=== PATIENT | male | born 1985 | race Caucasian/White ===

== ENCOUNTER 2019-03-21 17:59 | Emergency (ER) | payer BC ==
--- NOTE | 2019-03-21 18:07 | ER Report ---
History and Physical Time Seen By MD: 18:03 Hx. 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 Patient's last episode was 10 AM this morning. He had one last night at midnight the day before he had 1 in the day before that. Patient describes onset of blurry vision in the right eye transversing across both eyes. He subsequently develops a left-sided headache, which then spreads across his entire frontal region. He has repetitive vomiting about every 30 minutes. Patient denies family history of migraines. Patient usually takes ibuprofen or Tylenol and retires to sleep. He wakes up with a headache resolved. REVIEW OF SYSTEMS: Respiratory: No cough, no dyspnea. Cardiovascular: No chest pain, no palpitations. Gastrointestinal: As above Musculoskeletal: No back pain. Allergies: Coded Allergies: No Known Drug Allergies (Unverified , 03/21/19) Home Meds Active Scripts Rizatriptan Benzoate (RIZATRIPTAN) 5 Mg Tablet, 1-2 TAB PO Q2H PRN for migrane headache, #12 1 Refill 1-2 tablets at the onset of a migraine, may repeat in 2 hours, do not exceed a max of 30 mg in 24 hours Prov:LORELEI PENA DO 03/21/19 Ondansetron 4 Mg Odt (ONDANSETRON 4 MG ODT) 4 Mg Tab.rapdis, 4 MG PO Q6H PRN for NAUSEA/VOMITING, #15 TAB Prov:LORELEI PENA DO 03/21/19 Reviewed Nurses Notes: Yes Old Medical Records Reviewed: Yes Constitutional Vital Sign - Last 24 Hours 03/21/19 03/21/19 03/21/19 03/21/19 17:59 18:03 18:29 18:30 Temp 98.2 Pulse ??? 97 78 Resp 18 B/P (MAP) 140/98 (112) 140/98 121/92 (102) Pulse Ox 97 91 O2 Delivery Room Air 03/21/19 03/21/19 18:59 19:00 Pulse 85 B/P (MAP) 104/77 (86) Pulse Ox 92 Physical Exam Vital signs stable, afebrile, pulse ox normal General Appearance: The patient is alert, has no immediate need for airway protection and no current signs of toxicity. Mild distress HEENT: Pupils equal and round no injection. PERRLA,+ photophobia, TMs normal, TMJs nontender, oropharynx without redness or exudate Respiratory: Chest is non tender, lungs are clear to auscultation. Cardiac: regular rate and rhythm Gastrointestinal: Abdomen is soft and non tender, no masses, bowel sounds normal. Musculoskeletal: Neck: Neck is supple and non tender. No lymphadenopathy, no meningismus Extremities have full range of motion and are non tender. Skin: No rashes or lesions. Neuro: Alert and oriented 3, cranial nerves II through XII intact motor 5/5 all groups, sensory intact to light touch 4 DIFFERENTIAL DIAGNOSIS: After history and physical exam differential diagnosis was considered for headache including but not limited to subarachnoid hemo rrhage, migraine headache, tension headache and infectious causes such as meningitis, pharyngitis and sinusitis. Medical Decision Making Data Points Result Diagram: 03/21/195 03/21/195 Laboratory Hematology Test 03/21/19 18:15 White Blood Count 14.0 k/uL (4.5-11.0) H Red Blood Count 5.47 M/uL (4.00-5.60) Hemoglobin 17.2 g/dL (14.0-18.0) Hematocrit 49.3 % (42.0-52.0) Mean Corpuscular Volume 90.1 fL (80.0-96.0) Mean Corpuscular Hemoglobin 31.4 pg (26.0-33.0) Mean Corpuscular Hemoglobin Concent 34.9 g/dL (32.0-36.0) Red Cell Distribution Width 13.4 % (11.5-14.5) Platelet Count 397 K/uL (150-450) Mean Platelet Volume 6.8 fL (7.2-11.1) L Neutrophils (%) (Auto) 69.0 % (39.4-72.5) Lymphocytes (%) (Auto) 22.1 % (17.6-49.6) Monocytes (%) (Auto) 7.8 % (4.1-12.4) Eosinophils (%) (Auto) 0.0 % (0.4-6.7) L Basophils (%) (Auto) 1.1 % (0.3-1.4) Nucleated RBC Relative Count (auto) 0.1 /100WBC Neutrophils # (Auto) 9.6 K/uL (2.0-7.4) H Lymphocytes # (Auto) 3.1 K/uL (1.3-3.6) Monocytes # (Auto) 1.1 K/uL (0.3-1.0) H Eosinophils # (Auto) 0.0 K/uL (0.0-0.5) Basophils # (Auto) 0.2 K/uL (0.0-0.1) H Nucleated RBC Absolute Count (auto) 0.01 K/uL Erythrocyte Sedimentation Rate 4 mm/HOUR (0-15) Chemistry Test 03/21/19 18:15 Sodium Level 140 mmol/L (137-145) Potassium Level 4.1 mmol/L (3.5-5.0) Chloride Level 102 mmol/L (98-107) Carbon Dioxide Level 27 mmol/L (22-30) Blood Urea Nitrogen 12 mg/dl (9-21) Creatinine 1.20 mg/dl (0.66-1.25) Glomerular Filtration Rate Calc > 60.0 Random Glucose 122 mg/dl (75-110) Calcium Level 9.9 mg/dl (8.4-10.2) Total Bilirubin 0.9 mg/dl (0.2-1.3) Aspartate Amino Transf (AST/SGOT) 31 U/L (0-35) Alanine Aminotransferase (ALT/SGPT) 62 U/L (0-56) Alkaline Phosphatase 68 U/L (0-126) Total Protein 8.1 g/dl (6.3-8.2) Albumin 4.8 g/dl (3.5-5.0) EKG/Imaging Imaging Results: CT scan of the head without contrast was obtained. The results of the study are no acute findings. The study was read by the radiologist. I viewed the images myself on the PACS system. ED Course/Re-evaluation Clinical Indication for ER IV: Hydration, IV Access ED Course Patient was admitted to an examination room. H&P was done. The differential diagnoses was considered. On clinical examination. Patient has a nonfocal neurologic examination. His clinical presentation is of migraine headaches. He said for the last 4 days. He thinks there is a family history of headaches. Patient notes no infectious symptoms. He has no stiff neck or fever. Patient's treated with IV fluid hydration. A CAT scan is performed. Since his father had a brain tumor. The CAT scan is unremarkable. Patient feels much better after medications. He states discharged with Maxalt and Zofran to use for his abortive headache problems. He's advised to follow-up with primary care back in [place], [place] upon returning home. Decision to Disposition Date: Mar 21, 2019 Decision to Disposition Time: 18:55 Depart Departure Latest Vital Signs Vital Signs Date Time Temp Pulse Resp B/P (MAP) Pulse Ox O2 Delivery O2 Flow Rate FiO2 03/21/19 19:00 104/77 (86) 03/21/19 18:59 85 92 03/21/19 18:03 98.2 18 Room Air Impression: Primary Impression: Migraine headache Condition: Improved Disposition: HOME OR SELF-CARE New Scripts Rizatriptan Benzoate (RIZATRIPTAN) 5 Mg Tablet 1-2 TAB PO Q2H PRN for migrane headache, #12 1 Refill 1-2 tablets at the onset of a migraine, may repeat in 2 hours, do not exceed a max of 30 mg in 24 hours Prov: LORELEI PENA DO 03/21/19 Ondansetron 4 Mg Odt (ONDANSETRON 4 MG ODT) 4 Mg Tab.rapdis 4 MG PO Q6H PRN for NAUSEA/VOMITING, #15 TAB Prov: LORELEI PENA DO 03/21/19 Patient Instructions: Migraine Headache (ED) Additional Instructions: Take Zofran at the onset of nausea and a headache Take Maxalt one to 2 tablets at the onset of a headache and may repeat every 2 hours to a max of 30 mg, which is 6 tablets in 24 hours May also take Tylenol and ibuprofen with this for additional pain relief You may also take Excedrin Migraine headache formula Follow-up with your primary care doctor back home as soon as possible Problem Qualifiers Primary Impression: Migraine headache Migraine type: unspecified Status migrainosus presence: without status migrainosus Intractability: not intractable Qualified Codes: G43.909 - Migraine, unspecified, not intractable, without status migrainosus LORELEI PENA DO Mar 21, 2019 18:07
[2019-03-21] MEDS ORDERED: NS(*) 0.9% 1000 ML BAG 1,000 ML IV ONE (18:13)
[2019-03-21] MEDS ORDERED: DEXAMETHASONE SOD PHOS 10MG/ML IVP ONE (18:15)
[2019-03-21] MEDS ORDERED: KETOROLAC 30 MG/ML VIAL IVP ONE (18:15)
[2019-03-21] MEDS ORDERED: ONDANSETRON 4 MG/2 ML VIAL IVP ONE (18:15)
[2019-03-21 18:24] LABS: PLATELET COUNT, AUTOMATED 397 K/uL (150-450)
--- NOTE | 2019-03-21 18:58 | RADIOLOGY IMAGING REPORT ---
FAC[place] [facility] [place] NAME: Jacek Walton : 1985 MR: [id number] V: [id number] EXAM DATE: ORDERING PHYSICIAN: LORELEI PENA TECHNOLOGIST: Location: [facility] - [place] Patient: Jacek Walton : 1985 Visit/Account:[id number] Date of Sevice: 03/21/2019 EXAMINATION: CT head without IV contrast HISTORY: Headaches, nausea, lightheadedness COMPARISON: None. TECHNIQUE: Contiguous axial images were obtained from the skull base to the vertex without intraven ous contrast. Sagittal and coronal reformatted images are also submitted. One of the following dose optimization techniques was utilized in the performance of this exam: Autom ated exposure control; adjustment of the mA and/or kV according to the patient's size; or use of an i terative reconstruction technique. Specific details can be referenced in the facility's radiology C T exam operational policy. FINDINGS: Brain volume: Normal. Ventricles: Normal. Acute ischemic changes: None. Hemorrhage: None. Masses/edema: None. Mckee-white: Negative. White matter: Normal. Vessels: Negative. Extra-axial: Negative. Calvarium/scalp: Negative. Skull base/visualized face: Negative. Visualized sinuses/orbits: Negative. IMPRESSION: No intracranial mass lesion or hemorrhage. No CT evidence of acute infarct. Report Dictated By: FOUZIA AVINA at 03/21/2019 6:49 PM Report E-Signed By: FOUZIA AVINA at 03/21/2019 6:52 PM WSN:[email or web address]
[2019-03-21 19:00] VITALS: BP 104/77
[2019-03-21] MEDS ORDERED: ONDA4TAB9 PO (19:05)
[2019-03-21] MEDS ORDERED: RIZA5TAB26 PO (19:05)
[2019-03-21] MEDS ORDERED: ONDANSETRON 4 MG ODT TH SL ONE (19:20)
== END 2019-03-21 19:27 | disposition home or self-care (01) ==
LOC: ER 18:09
DX: G43.909 Migraine, unspecified, not intractable, without status migrainosus (principal)
CPT/HCPCS: 70450; 85025; 85651; 96374; 96375; 99284; J1100; J1885; J2405; J7030; 82040; 82247; 82310; 82374; 82435; 82565; 82947; 84075; 84132; 84155; 84295; 84450; 84460; 84520